=== PATIENT | male | born 1975 | race Caucasian/White ===

== ENCOUNTER 2020-06-03 08:00 | Outpatient (RCR) | payer OTHER, SELFPAY ==
[2020-03-11 09:21] VITALS: BMI 39.2
[2020-06-03 08:15] VITALS: BMI 38.5
[2020-06-03 08:18] VITALS: BMI 38.5
== END 2020-06-09 23:59 | disposition home or self-care (01) ==
LOC: ANHDMC 08:00
PROVIDERS: PCP Internal Medicine; Visit Provider Internal Medicine
DX: E11.9 Type 2 diabetes mellitus without complications (principal); Z71.89 Other specified counseling; Z71.3 Dietary counseling and surveillance; Z68.39 Body mass index [BMI] 39.0-39.9, adult
CPT/HCPCS: 97802; 97803; G0108

== ENCOUNTER 2022-03-23 01:00 | Outpatient (NON) | payer BC, SELFPAY | END 2022-03-23 01:01 | disposition home or self-care (01) | LOC: ANHLAB 03-24 14:46 | PROVIDERS: PCP Family Medicine; Visit Provider Nurse Practitioner | DX: D49.2 Neoplasm of unspecified behavior of bone, soft tissue, and skin (principal) | CPT/HCPCS: 88305 ==

== ENCOUNTER 2022-07-24 13:29 | Outpatient (NON) | payer BC, SELFPAY | END 2022-07-24 13:30 | disposition home or self-care (01) | LOC: ANHLAB 13:29 | PROVIDERS: PCP Family Medicine; Referring Provider Nurse Practitioner; Visit Provider Nurse Practitioner | DX: C44.311 Basal cell carcinoma of skin of nose (principal) | CPT/HCPCS: 88305; 88331 ==